=== PATIENT | female | born 2000 | race Caucasian/White ===

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

== ENCOUNTER 2018-11-08 10:16 | Emergency (ER) | payer BC ==
[2018-11-08 10:26] VITALS: TEMP 98.5
[2018-11-08] MEDS ORDERED: PANTOPRAZOLE 40 MG/10 ML VIAL IVP STA (10:38)
[2018-11-08] MEDS ORDERED: SODIUM CHLORIDE 0.9% 1,000 ML IV STA (10:38)
[2018-11-08] MEDS ORDERED: MAG HYDROX/AL HYDROX/SIMETH 30 ML, HYOSCYAMINE ELIXIR 10 ML, CIMETIDINE HCL 300 MG, LID... PO STA ×4 (10:39)
--- NOTE | 2018-11-08 10:52 | ED ---
General Adult HPI - General Chief complaint: Abdominal Pain Stated complaint: Abd pain Time Seen by Provider: 11/08/18 10:32 Source: patient, RN notes reviewed Mode of arrival: ambulatory Limitations: no limitations - History of Present Illness Initial comments: 18-year-old female presents to the emergency department for a chief complaint of left upper quadrant pain 12 hours. Patient states pain is a sharp stabbing pain. Patient states deep breathing makes the pain worse but denies any chest pain or shortness of breath. Patient admits to mild nausea as well, denies vomiting. Patient denies concern for . Patient describes the pain as a sharp stabbing pain. She denies any alleviating factors. She denies having this pain before. Patient denies any excessive NSAID or steroid use. Patient denies any history of ulcers. She denies any abdominal surgeries. No medical history besides asthma. Patient has no other complaints at this time including shortness of breath, chest pain, vomiting, headache, or visual changes. - Related Data Home Medications Medication Instructions Recorded Confirmed Albuterol Inhaler [Ventolin 2 puff INHALATION RT-Q4H PRN 07/27/14 11/08/18 Inhaler] Medroxyprogesterone Acetate 150 mg IM Q90D 03/21/17 11/08/18 [Depo-Provera] Ibuprofen [Motrin] 600 mg PO Q8HR PRN 11/08/18 11/08/18 Loratadine [Claritin] 10 mg PO DAILY 11/08/18 11/08/18 Montelukast Sodium [Singulair] 10 mg PO HS 11/08/18 11/08/18 Allergies Allergy/AdvReac Type Severity Reaction Status Date / Time No Known Allergies Allergy Verified 11/08/18 10:42 Review of Systems ROS Statement: Those systems with pertinent positive or pertinent negative responses have been documented in the HPI. ROS Other: All systems not noted in ROS Statement are negative. Past Medical History Past Medical History: Asthma Additional Past Medical History / Comment(s): CYST LEFT OVARY History of Any Multi-Drug Resistant Organisms: None Reported Past Surgical History: Adenoidectomy, Tonsillectomy Past Anesthesia/Blood Transfusion Reactions: No Reported Reaction Past Psychological History: No Psychological Hx Reported Smoking Status: Never smoker Past Alcohol Use History: None Reported Past Drug Use History: None Reported - Past Family History Mother Family Medical History: No Reported History General Exam Limitations: no limitations General appearance: alert, in no apparent distress Head exam: Present: atraumatic, normocephalic, normal inspection Eye exam: Present: normal appearance, PERRL, EOMI. Absent: scleral icterus, conjunctival injection, periorbital swelling ENT exam: Present: normal exam, mucous membranes moist Neck exam: Present: normal inspection, full ROM. Absent: tenderness, meningismus, lymphadenopathy Respiratory exam: Present: normal lung sounds bilaterally. Absent: respiratory distress, wheezes, rales, rhonchi, stridor Cardiovascular Exam: Present: regular rate, normal rhythm, normal heart sounds. Absent: systolic murmur, diastolic murmur, rubs, gallop, clicks GI/Abdominal exam: Present: soft, tenderness (minimal tenderness to palpation in LUQ and epigastric area. No guarding or rebound present. No tenderness in the right upper quadrant or lower abdomen. Exam generally unremarkable), normal bowel sounds. Absent: distended, guarding, rebound, rigid (no evidence of rigid abdomen, abdomen is soft when being palpated) Neurological exam: Present: alert, oriented X3, CN II-XII intact Psychiatric exam: Present: normal affect, normal mood Course Vital Signs 11/08/18 11/08/18 10:23 12:00 Temperature 98.5 F Pulse Rate 97 73 Respiratory 16 20 Rate Blood Pressure 116/77 115/68 O2 Sat by Pulse 99 99 Oximetry Medical Decision Making - Medical Decision Making 18-year-old otherwise healthy female presents for chief complaint of left upper quadrant pain x 12 hours. CBC CMP unremarkable. Urine negative for infection. X-ray does show air noted throughout the night and dilated small and large bowel with some air-fluid levels in the left upper quadrant. This is likely the cause of patient's pain. Patient last had a bowel movement yesterday and is passing gas normally, no concern for obstruction at this time. No vomiting. Discussed trying MiraLAX today for symptom relief. Discussed returning if she has any worsening symptoms. Patient will follow up with primary care in 1- 2 days. - Lab Data Result diagrams: 11/08/18 10:55 11/08/18 10:55 Lab Results 11/08/18 11/08/18 11/08/18 Range/Units 10:55 10:55 10:55 WBC 7.0 (4.0-11.0) k/uL RBC 4.95 (3.80-5.40) m/uL Hgb 14.5 (11.4-16.0) gm/dL Hct 44.0 (34.0-46.0) % MCV 89.0 (80.0-100.0) fL MCH 29.3 (25.0-35.0) pg MCHC 33.0 (31.0-37.0) g/dL RDW 12.2 (11.5-15.5) % Plt Count 224 (150-450) k/uL Neutrophils % 45 % Lymphocytes % 42 % Monocytes % 5 % Eosinophils % 4 % Basophils % 1 % Neutrophils # 3.2 (1.3-7.7) k/uL Lymphocytes # 3.0 (1.0-4.8) k/uL Monocytes # 0.4 (0-1.0) k/uL Eosinophils # 0.3 (0-0.7) k/uL Basophils # 0.1 (0-0.2) k/uL Sodium 140 (137-145) mmol/L Potassium 4.3 (3.5-5.1) mmol/L Chloride 110 H (98-107) mmol/L Carbon Dioxide 22 (22-30) mmol/L Anion Gap 8 mmol/L BUN 12 (7-17) mg/dL Creatinine 0.68 (0.52-1.04) mg/dL Est GFR (CKD-EPI)AfAm >90 (>60 ml/min/1.73 sqM) Est GFR (CKD-EPI)NonAf >90 (>60 ml/min/1.73 sqM) Glucose 77 (74-99) mg/dL Calcium 9.9 (8.4-10.2) mg/dL Total Bilirubin 0.7 (0.2-1.3) mg/dL AST 23 (14-36) U/L ALT 20 (9-52) U/L Alkaline Phosphatase 48 (38-126) U/L Total Protein 7.5 (6.3-8.2) g/dL Albumin 4.5 (3.5-5.0) g/dL Amylase 70 (30-110) U/L Lipase 104 (23-300) U/L Urine Color Urine Appearance (Clear) Urine pH (5.0-8.0) Ur Specific Yolyn (1.001-1.035) Urine Protein (Negative) Urine Glucose (UA) (Negative) Urine Ketones (Negative) Urine Blood (Negative) Urine Nitrite (Negative) Urine Bilirubin (Negative) Urine Urobilinogen (<2.0) mg/dL Ur Leukocyte Esterase (Negative) Urine HCG, Qual Not Detected (Not Detectd) 11/08/18 Range/Units 10:55 WBC (4.0-11.0) k/uL RBC (3.80-5.40) m/uL Hgb (11.4-16.0) gm/dL Hct (34.0-46.0) % MCV (80.0-100.0) fL MCH (25.0-35.0) pg MCHC (31.0-37.0) g/dL RDW (11.5-15.5) % Plt Count (150-450) k/uL Neutrophils % % Lymphocytes % % Monocytes % % Eosinophils % % Basophils % % Neutrophils # (1.3-7.7) k/uL Lymphocytes # (1.0-4.8) k/uL Monocytes # (0-1.0) k/uL Eosinophils # (0-0.7) k/uL Basophils # (0-0.2) k/uL Sodium (137-145) mmol/L Potassium (3.5-5.1) mmol/L Chloride (98-107) mmol/L Carbon Dioxide (22-30) mmol/L Anion Gap mmol/L BUN (7-17) mg/dL Creatinine (0.52-1.04) mg/dL Est GFR (CKD-EPI)AfAm (>60 ml/min/1.73 sqM) Est GFR (CKD-EPI)NonAf (>60 ml/min/1.73 sqM) Glucose (74-99) mg/dL Calcium (8.4-10.2) mg/dL Total Bilirubin (0.2-1.3) mg/dL AST (14-36) U/L ALT (9-52) U/L Alkaline Phosphatase (38-126) U/L Total Protein (6.3-8.2) g/dL Albumin (3.5-5.0) g/dL Amylase (30-110) U/L Lipase (23-300) U/L Urine Color Yellow Urine Appearance Clear (Clear) Urine pH 5.0 (5.0-8.0) Ur Specific Yolyn 1.013 (1.001-1.035) Urine Protein Negative (Negative) Urine Glucose (UA) Negative (Negative) Urine Ketones Negative (Negative) Urine Blood Negative (Negative) Urine Nitrite Negative (Negative) Urine Bilirubin Negative (Negative) Urine Urobilinogen <2.0 (<2.0) mg/dL Ur Leukocyte Esterase Negative (Negative) Urine HCG, Qual (Not Detectd) Disposition Clinical Impression: Abdominal pain Disposition: HOME SELF-CARE Condition: Good Instructions (If sedation given, give patient instructions): Abdominal Pain (ED ) Additional Instructions: Please follow up with primary care in 1-2 days. Please take MiraLAX as well as Motrin and Tylenol for pain. Return to the emergency department if you have any worsening symptoms. Is patient prescribed a controlled substance at d/c from ED?: No Referrals: Addy Oneill DO [Primary Care Provider] - 1-2 days Time of Disposition: 12:29
[2018-11-08 11:19] LABS: Appearance,Urine Clear (Clear); Bilirubin,Urine Negative (Negative); Blood,Urine Negative (Negative); Color,Urine Yellow; Glucose,Urine (UA) Negative (Negative); Ketones,Urine Negative (Negative); Leukocyte Esterase,Urine Negative (Negative); Nitrite,Urine Negative (Negative); Protein,Urine Negative (Negative); Specific Gravity,Urine 1.013 (1.001-1.035); Urobilinogen,Urine <2.0 mg/dL (<2.0)
[2018-11-08 11:20] LABS: Basophils # (A) 0.1 k/uL (0-0.2); Basophils % (A) 1 %; Eosinophils # (A) 0.3 k/uL (0-0.7); Eosinophils % (A) 4 %; HGB 14.5 gm/dL (11.4-16.0); Lymphocytes % (A) 42 %; MCH 29.3 pg (25.0-35.0); Mean Platelet Volume 6.7; Monocytes # (A) 0.4 k/uL (0-1.0); Monocytes % (A) 5 %; Neutrophils # (A) 3.2 k/uL (1.3-7.7); Neutrophils % (A) 45 %; Platelet Count 224 k/uL (150-450); RBC 4.95 m/uL (3.80-5.40); RDW 12.2 % (11.5-15.5)
[2018-11-08 11:32] LABS: ALT 20 U/L (9-52); AST 23 U/L (14-36); Albumin 4.5 g/dL (3.5-5.0); Alkaline Phosphatase 48 U/L (38-126); Amylase 70 U/L (30-110); Anion Gap 8 mmol/L; Blood Urea Nitrogen 12 mg/dL (7-17); Calcium 9.9 mg/dL (8.4-10.2); Carbon Dioxide 22 mmol/L (22-30); Chloride 110 mmol/L (98-107); Glucose 77 mg/dL (74-99); Lipase 104 U/L (23-300); Potassium 4.3 mmol/L (3.5-5.1); Sodium 140 mmol/L (137-145); Total Bilirubin 0.7 mg/dL (0.2-1.3); Total Protein 7.5 g/dL (6.3-8.2)
[2018-11-08] MEDS ORDERED: KETOROLAC 30 MG/ML 1 ML VIAL IVP STA (11:59)
--- NOTE | 2018-11-08 12:02 | XR ---
EXAMINATION TYPE: XR abdomen acute w cxr DATE OF EXAM: 11/08/2018 COMPARISON: Chest x-ray 06/22/2000 and HISTORY: Left upper quadrant pain TECHNIQUE: Supine, upright, and frontal chest views of the chest and abdomen are obtained. FINDINGS: There is no evidence for pneumoperitoneum. The bowel gas pattern is unremarkable as there is air throughout nondilated small and large bowel. There are some air-fluid levels in the left upper quadrant. No mass effects are seen. No unusual calcifications. There is a mild spinal curvature. IMPRESSION: The could be underlying ileus or enteritis.
[2018-11-08 12:12] VITALS: BP 115/68; PULSE 73; RESP 20
== END 2018-11-08 12:35 | disposition home or self-care (01) ==
LOC: EC 10:16
DX: R10.12 Left upper quadrant pain (principal); K59.8 Other specified functional intestinal disorders; R11.0 Nausea; J45.909 Unspecified asthma, uncomplicated; Z79.3 Long term (current) use of hormonal contraceptives; Z79.899 Other long term (current) drug therapy
CPT/HCPCS: 36415; 80053; 82150; 83690; 85025; 81003; 81025; 74022; 99284; 96374; 96375; 96361; J1885; C9113

== ENCOUNTER 2019-04-29 14:43 | Emergency (ER) | payer BC ==
[2019-04-29 14:52] VITALS: RESP 18
[2019-04-29] MEDS ORDERED: KETOROLAC 30 MG/ML 1 ML VIAL IVP STA (15:45)
[2019-04-29] MEDS ORDERED: SODIUM CHLORIDE 0.9% 1,000 ML IV STA (15:45)
--- NOTE | 2019-04-29 15:49 | ED ---
General Adult HPI - General Chief complaint: Headache Stated complaint: Neck/back/headache/nausea Time Seen by Provider: 04/29/19 15:34 Source: patient Mode of arrival: ambulatory Limitations: no limitations - History of Present Illness Initial comments: Dictation was produced using [employer] dictation software. please excuse any grammatical, word or spelling errors. Chief Complaint: 18-year-old female with history of headaches presents with constitutional symptoms and headache. History of Present Illness: Patient is a 18-year-old female she has a past medical history of migraines. States her migraine typically in the right frontal area. She states that over the last 12-18 hours she's been having mild headache. She also complains of diffuse muscular pain and joint pain. She went to the urgent care physician events administrative assistant. Physician nursing home assistant administrator her straight to the emergency department. She was told that there was concern of meningitis. Patient denies any neck stiffness. No neurologic deficit. Patient is not confused or aphasic. Patient was a mild sore throat. No cough. No dysuria no abdominal symptoms, nausea or vomiting. Denies any rash. Patient has no medical problems. She works as a [email or web address]. The ROS documented in this emergency department record has been reviewed and confirmed by me. Those systems with pertinent positive or negative responses have been documented in the HPI. All other systems are other negative and/or noncontributory. PHYSICAL EXAM: General Impression: Alert and oriented x3, not in acute distress HEENT: Normocephalic atraumatic, extra-ocular movements intact, pupils equal and reactive to light bilaterally, mucous membranes moist. Cardiovascular: Heart regular rate and rhythm, S1&S2 audible, no murmurs, rubs or gallops Chest: Lungs clear to auscultation bilaterally, no rhonchi, no wheeze, no rales Abdomen: Bowel sounds present, abdomen soft, non-tender, non-distended, no organomegaly Musculoskeletal: Pulses present and equal in all extremities, no peripheral edema Motor: no focal deficits noted Neurological: CN II-XII grossly intact, no focal motor or sensory deficits noted, negative Kernig's, negative Brudzinski's sign, negative jolt sign, patient moving neck freely without any symptoms. Skin: Intact with no visualized rashes, no rashes Psych: Normal affect and mood ED course: 18 old female who presents with very mild headache and constitutional symptoms last night sent in from urgent care for possible meningitis. Vital signs upon arrival shows temperature of 99, rest of vital signs within acceptable limits. Given patient's clinical presentation highly doubt meningitis at this time given that patient does not have any neck symptoms, she is well-appearing and has no neurologic findings. Furthermore, she does not have any rash or has been exposed to anyone with possible meningitis. She is afebrile on arrival with normal vital signs. Laboratory evaluation obtained. Pending CBC. Metabolic panel shows mild a cidosis. Urinalysis shows 9 white blood cells however 9 squamous cells. Group A strep is negative. Chest x-ray is unremarkable. Patient given intravenous fluids. Patient had some superpubic symptoms are short-lived yesterday. She denies any urinary symptoms currently. There is concern of possible urinary tract infection. Blood cultures and urine cultures and throat cultures were obtained. Patient is notified of these results were be completed and approximate 2 days. She is well-appearing. Repeat vital signs are unremarkable. Patient continues to be asymptomatic. She continues afebrile. Patient is cleared for discharge. Patient prescription to treat urinary tract infection. She was given prescription for Zofran. - Related Data Home Medications Medication Instructions Recorded Confirmed Albuterol Inhaler [Ventolin 2 puff INHALATION RT-Q4H PRN 07/27/14 04/29/19 Inhaler] Medroxyprogesterone Acetate 150 mg IM Q90D 03/21/17 04/29/19 [Depo-Provera] Loratadine [Claritin] 10 mg PO HS 11/08/18 04/29/19 Montelukast Sodium [Singulair] 10 mg PO HS 11/08/18 04/29/19 Previous Rx's Medication Instructions Recorded Cephalexin [Keflex] 500 mg PO Q6HR 5 Days #20 cap 04/29/19 Ondansetron Odt [Zofran Odt] 4 mg PO Q8HR PRN #20 tab 04/29/19 Allergies Allergy/AdvReac Type Severity Reaction Status Date / Time No Known Allergies Allergy Verified 04/29/19 15:49 Review of Systems ROS Statement: Those systems with pertinent positive or pertinent negative responses have been documented in the HPI. ROS Other: All systems not noted in ROS Statement are negative. Past Medical History Past Medical History: Asthma Additional Past Medical History / Comment(s): CYST LEFT OVARY History of Any Multi-Drug Resistant Organisms: None Reported Past Surgical History: Adenoidectomy, Tonsillectomy Past Anesthesia/Blood Transfusion Reactions: No Reported Reaction Past Psychological History: No Psychological Hx Reported Smoking Status: Never smoker Past Alcohol Use History: None Reported Past Drug Use History: None Reported - Past Family History Mother Family Medical History: No Reported History General Exam Limitations: no limitations Course Vital Signs 04/29/19 14:48 Temperature 99 F Pulse Rate 101 H Respiratory 18 Rate Blood Pressure 112/69 O2 Sat by Pulse 96 Oximetry Medical Decision Making - Lab Data Result diagrams: 04/29/19 16:05 Lab Results 04/29/19 04/29/19 04/29/19 Range/Units 15:50 16:05 16:05 Sodium 138 (137-145) mmol/L Potassium 3.8 (3.5-5.1) mmol/L Chloride 106 (98-107) mmol/L Carbon Dioxide 20 L (22-30) mmol/L Anion Gap 12 mmol/L BUN 9 (7-17) mg/dL Creatinine 0.62 (0.52-1.04) mg/dL Est GFR (CKD-EPI)AfAm >90 (>60 ml/min/1.73 sqM) Est GFR (CKD-EPI)NonAf >90 (>60 ml/min/1.73 sqM) Glucose 87 (74-99) mg/dL Calcium 9.9 (8.4-10.2) mg/dL Urine Color Yellow Urine Appearance Cloudy H (Clear) Urine pH 5.5 (5.0-8.0) Ur Specific [place] 1.026 (1.001-1.035) Urine Protein Trace H (Negative) Urine Glucose (UA) Negative (Negative) Urine Ketones 1+ H (Negative) Urine Blood Negative (Negative) Urine Nitrite Negative (Negative) Urine Bilirubin Negative (Negative) Urine Urobilinogen <2.0 (<2.0) mg/dL Ur Leukocyte Esterase Moderate H (Negative) Urine RBC 1 (0-5) /hpf Urine WBC 9 H (0-5) /hpf Ur Squamous Epith Cells 9 H (0-4) /hpf Urine Mucus Many H (None) /hpf Group A Strep Rapid Negative (Negative) Disposition Clinical Impression: Headache Disposition: HOME SELF-CARE Condition: Good Instructions (If sedation given, give patient instructions): Acute Headache (ED) Prescriptions: Cephalexin [Keflex] 500 mg PO Q6HR 5 Days #20 cap Ondansetron Odt [Zofran Odt] 4 mg PO Q8HR PRN #20 tab PRN Reason: Nausea Is patient prescribed a controlled substance at d/c from ED?: No Referrals: Addy Oneill DO [Primary Care Provider] - 1-2 days Time of Disposition: 16:55
[2019-04-29 16:08] LABS: Appearance,Urine Cloudy (Clear); Bilirubin,Urine Negative (Negative); Blood,Urine Negative (Negative); Color,Urine Yellow; Glucose,Urine (UA) Negative (Negative); Ketones,Urine 1+ (Negative); Leukocyte Esterase,Urine Moderate (Negative); Mucus,Urine Many /hpf; Nitrite,Urine Negative (Negative); PH, Urine 5.5 (5.0-8.0); Protein,Urine Trace (Negative); RBC,Urine 1 /hpf (0-5); Specific Gravity,Urine 1.026 (1.001-1.035); Squamous Epithelial Cell,Urine 9 /hpf (0-4); Urobilinogen,Urine <2.0 mg/dL (<2.0); WBC,Urine 9 /hpf (0-5)
[2019-04-29 16:20] LABS: Basophils % (A) 0 %; Eosinophils # (A) 0.1 k/uL (0-0.7); Eosinophils % (A) 1 %; HCT 43.4 % (34.0-46.0); HGB 14.4 gm/dL (11.4-16.0); Lymphocytes # (A) 1.5 k/uL (1.0-4.8); Lymphocytes % (A) 23 %; MCH 29.7 pg (25.0-35.0); MCHC 33.1 g/dL (31.0-37.0); MCV 89.8 fL (80.0-100.0); Mean Platelet Volume 6.4; Monocytes # (A) 0.4 k/uL (0-1.0); Monocytes % (A) 6 %; Neutrophils # (A) 4.6 k/uL (1.3-7.7); Neutrophils % (A) 68 %; Platelet Count 266 k/uL (150-450); RBC 4.83 m/uL (3.80-5.40); RDW 11.9 % (11.5-15.5); WBC 6.7 k/uL (4.0-11.0)
[2019-04-29 16:27] LABS: African American GFR (CKD) >90 (>60 ml/min/1.73 sqM); Anion Gap 12 mmol/L; Blood Urea Nitrogen 9 mg/dL (7-17); Calcium 9.9 mg/dL (8.4-10.2); Carbon Dioxide 20 mmol/L (22-30); Chloride 106 mmol/L (98-107); Glucose 87 mg/dL (74-99); Potassium 3.8 mmol/L (3.5-5.1); Sodium 138 mmol/L (137-145)
--- NOTE | 2019-04-29 16:43 | XR ---
EXAMINATION TYPE: XR chest 2V DATE OF EXAM: 04/29/2019 COMPARISON: 11/08/2018 HISTORY: Back pain TECHNIQUE: Frontal and lateral views of the chest are obtained. FINDINGS: Heart and mediastinum are normal. Lungs are clear. Diaphragm is normal. Bony thorax appear s normal. IMPRESSION: Normal chest. No change.
[2019-04-29 16:52] VITALS: BP 109/65; PULSE 76; TEMP 97.7
[2019-04-29] MEDS ORDERED: ONDANSETRON 4 MG/2 ML VIAL IVP STA (16:52)
== END 2019-04-29 17:17 | disposition home or self-care (01) ==
LOC: EC 14:43
DX: R51 Headache (principal); E87.2 Acidosis; J45.909 Unspecified asthma, uncomplicated; Z79.899 Other long term (current) drug therapy
CPT/HCPCS: 36415; 80048; 85025; 81001; 87040; 87086; 87081; 87430; 71046; 99283; 96374; 96375; J2405; J1885

== ENCOUNTER 2022-12-24 04:27 | Emergency (ER) | payer BC ==
[2022-12-24 04:42] VITALS: RESP 18; TEMP 98.1
[2022-12-24] MEDS ORDERED: KETOROLAC 15 MG/ML 1 ML VIAL IVP STA (05:16)
[2022-12-24] MEDS ORDERED: SODIUM CHLORIDE 0.9% 1,000 ML IV STA (05:16)
[2022-12-24] MEDS ORDERED: ONDANSETRON 4 MG/2 ML VIAL IVP STA (05:16)
[2022-12-24 05:56] LABS: Basophils % (A) 0 %; Eosinophils # (A) 0.3 k/uL (0-0.7); Eosinophils % (A) 4 %; HCT 43.3 % (34.0-46.0); HGB 14.8 gm/dL (11.4-16.0); Lymphocytes # (A) 2.7 k/uL (1.0-4.8); Lymphocytes % (A) 33 %; MCH 31.4 pg (25.0-35.0); MCHC 34.3 g/dL (31.0-37.0); MCV 91.6 fL (80.0-100.0); Mean Platelet Volume 7.4; Monocytes # (A) 0.4 k/uL (0-1.0); Monocytes % (A) 5 %; Neutrophils # (A) 4.6 k/uL (1.3-7.7); Neutrophils % (A) 56 %; Platelet Count 267 k/uL (150-450); RBC 4.73 m/uL (3.80-5.40); RDW 11.7 % (11.5-15.5); WBC 8.3 k/uL (3.8-10.6)
[2022-12-24 06:02] LABS: HCG,Qualitative Serum Not Detected
[2022-12-24 06:09] LABS: ALT 50 U/L (4-34); AST 36 U/L (14-36); African American GFR (CKD) >90 (>60 ml/min/1.73 sqM); Albumin 4.2 g/dL (3.5-5.0); Alkaline Phosphatase 48 U/L (38-126); Amylase 68 U/L (30-110); Anion Gap 7 mmol/L; Blood Urea Nitrogen 13 mg/dL (7-17); Carbon Dioxide 20 mmol/L (22-30); Chloride 109 mmol/L (98-107); Glucose 94 mg/dL (74-99); Lipase 93 U/L (23-300); Non-African American GFR(CKD) >90 (>60 ml/min/1.73 sqM); Sodium 136 mmol/L (137-145); Total Bilirubin 0.7 mg/dL (0.2-1.3); Total Protein 7.1 g/dL (6.3-8.2)
[2022-12-24 06:11] LABS: Partial Thromboplastin Time 24.9 sec (22.0-30.0); Potassium 4.2 mmol/L (3.5-5.1); Prothrombin Time 10.3 sec (9.0-12.0)
[2022-12-24 06:38] LABS: Appearance,Urine Clear (Clear); Bilirubin,Urine Negative (Negative); Blood,Urine Negative (Negative); Color,Urine Light Yellow; Glucose,Urine (UA) Negative (Negative); Ketones,Urine Negative (Negative); Leukocyte Esterase,Urine Negative (Negative); Nitrite,Urine Negative (Negative); PH, Urine 5.5 (5.0-8.0); Protein,Urine Negative (Negative); Specific Gravity,Urine 1.011 (1.001-1.035); Urobilinogen,Urine <2.0 mg/dL (<2.0)
--- NOTE | 2022-12-24 07:01 | XR ---
EXAMINATION TYPE: XR KUB DATE OF EXAM: 12/24/2022 COMPARISON: 11/08/2018 HISTORY: Abdominal pain TECHNIQUE: FINDINGS: There is no sign of intestinal obstruction or pneumoperitoneum. Fecal pattern is normal. No evidence of a mass. No pathologic calcification over the kidneys. Lung bases are clear. IMPRESSION: Nonacute abdomen.
[2022-12-24] MEDS ORDERED: MORPHINE SULFATE 2 MG/ML SYRINGE IVP STA (07:19)
[2022-12-24 07:57] VITALS: BP 99/67; PULSE 79
--- NOTE | 2022-12-24 08:06 | US ---
EXAMINATION TYPE: US transvaginal DATE OF EXAM: 12/24/2022 COMPARISON: US 2013 CLINICAL HISTORY: eval for torsion, history of cysts. Hx of cysts, pt states she had a mass removed f rom her left ovary in 2017. Hx endometriosis. Pt on depo shot. G0. TECHNIQUE: Transvaginal (TV). Date of LMP: Unknown. Pt is on depo shot. EXAM MEASUREMENTS: Uterus: 6.4 x 4.1 x 2.6 cm Endometrial Stripe: 0.29 cm Right Ovary: 5.0 x 2.9 x 2.5 cm Left Ovary: Not seen 1. Uterus: Anteverted 2. Endometrium: 0.29 cm 3. Right Ovary: Largest anechoic area measures 1.3 x 1.4 x 1.1 cm. 4. Left Ovary: Not seen. Spectral, color and waveform doppler imaging shows arterial and venous flow within the right ovary. Left ovary was obscured. 5. Bilateral Adnexa: Appear wnl 6. Posterior cul-de-sac: Appears wnl IMPRESSION: 1. Right ovarian simple appearing cyst. 2. Normal vascular flow right ovary 3. Nonvisualization of the left ovary and vascularity on the left adnexa cannot be confirmed. Correla te with the patient's symptoms.
--- NOTE | 2022-12-24 08:15 | ED ---
General Adult HPI - General Chief complaint: Abdominal Pain Stated complaint: Menstrual Cramping Time Seen by Provider: 12/24/22 05:00 Source: patient, RN notes reviewed, old records reviewed Mode of arrival: ambulatory Limitations: no limitations - History of Present Illness Initial comments: Patient is a 22-year-old female with past medical history remarkable for prior ovarian mass and left ovary that was removed, who presents emergency Department complaining of lower abdominal cramping. Believes it is menstrual cramps that she did have some bleeding yesterday. However she states she has a regular menstrual cycles. He has not had a normal cycle in a long time. He was late on obtaining her normal control injection, and does associate her is current symptoms with that. However pain at home is not controlled with the impact, Motrin, Tylenol and she is concerned with her history of having ovarian mass. Presents for further evaluation. Does endorse nausea. No emesis. No diarrhea. No upper abdominal pain. No urinary complaints. Denies being . Denies any vaginal discharge. Does endorse onetime episode of vaginal bleeding. No other acute complaints at this time. Presents for further evaluation. States the pain is more or less constant describes a sharp sensation across the lower aspect of her abdomen. Not isolated to one side of her abdomen. - Related Data Home Medications Medication Instructions Recorded Confirmed Albuterol Inhaler [Ventolin 2 puff INHALATION RT-Q4H PRN 07/27/14 04/29/19 Inhaler] Medroxyprogesterone Acetate 150 mg IM Q90D 03/21/17 04/29/19 [Depo-Provera] Loratadine [Claritin] 10 mg PO HS 11/08/18 04/29/19 Montelukast Sodium [Singulair] 10 mg PO HS 11/08/18 04/29/19 Previous Rx's Medication Instructions Recorded Cephalexin [Keflex] 500 mg PO Q6HR 5 Days #20 cap 04/29/19 Ondansetron Odt [Zofran Odt] 4 mg PO Q8HR PRN #20 tab 04/29/19 methocarbamoL [Robaxin] 500 mg PO BID PRN 5 Days #10 tab 12/24/22 Allergies Allergy/AdvReac Type Severity Reaction Status Date / Time No Known Allergies Allergy Verified 04/29/19 15:49 Review of Systems ROS Statement: Those systems with pertinent positive or pertinent negative responses have been documented in the HPI. Review of Systems: CONST: Denies fever EYES: Denies blurry vision ENT: Denies nasal congestion C/V: Denies Chest pain RESP: Denies shortness of breath GI: Endorses abdominal pain : Denies dysuria SKIN: Denies rash. MSK: Denies joint pain. NEURO: Denies headache ROS Other: All systems not noted in ROS Statement are negative. Past Medical History Past Medical History: Asthma Additional Past Medical History / Comment(s): CYST LEFT OVARY History of Any Multi-Drug Resistant Organisms: None Reported Past Surgical History: Adenoidectomy, Tonsillectomy Past Anesthesia/Blood Transfusion Reactions: No Reported Reaction Past Psychological History: No Psychological Hx Reported Past Alcohol Use History: None Reported Past Drug Use History: None Reported - Past Family History Mother Family Medical History: No Reported History General Exam - General Exam Comments Initial Comments: General: Appears in no acute distress. HEAD: Normal with no signs of head trauma. EYES: PERRLA, EOMI, conjunctiva normal, no discharge. ENT: Hearing grossly intact, normal oropharynx. RESPIRATORY: Clear breath sounds bilaterally. No wheezes, rales, or rhonchi. C/V: Regular rate and rhythm. S1 and S2 auscultated, no edema, peripheral pulses 2+ and intact throughout ABD: Abdomen soft, nondistended. Mild tenderness to palpation in the right lower, left lower quadrants as well as suprapubic region. Very mild tenderness on palpation. No guarding. No rebound tenderness. No peritoneal signs. EXT: Normal range of motion, no obvious deformity SKIN: No rashes or lesions observed on exposed skin. NEURO: Alert and oriented 4. Limitations: no limitations Course Vital Signs 12/24/22 12/24/22 04:29 07:57 Temperature 98.1 F 98.1 F Pulse Rate 83 79 Respiratory 18 18 Rate Blood Pressure 122/84 99/67 O2 Sat by Pulse 96 98 Oximetry Medical Decision Making - Medical Decision Making Was pt. sent in by a medical professional or institution (, PATTIE, PAINTER MIRROR, urgent care, hospital, or [facility]...) When possible be specific @ -No Did you speak to anyone other than the patient for history (EMS, parent, family, police, friend...)? What history was obtained from this source @ -No Did you review nursing and triage notes (agree or disagree)? Why? @ -I reviewed and agree with nursing and triage notes Were old charts reviewed (outside hosp., previous admission, EMS record, old EKG, old radiological studies, urgent care reports/EKG's, [facility] records)? Report findings @ -No old charts were reviewed Differential Diagnosis (chest pain, altered mental status, abdominal pain women, abdominal pain men, vaginal bleeding, weakness, fever, dyspnea, syncope, headache, dizziness, GI bleed, back pain, seizure, CVA, palpatations, mental health, musculoskeletal)? @ -Ovarian torsion, UTI, menstrual cramping, Menstrual cycle, Dehydration. This list is not all inclusive. EKG interpreted by me (3pts min.). @ -None done X-rays interpreted by me (1pt min.). @ -KUB x-ray revealed no obvious acute intra-abdominal process. CT interpreted by me (1pt min.). @ -None done U/S interpreted by me (1pt. min.). @ -Pelvic ultrasound for torsion was negative for any obvious torsion. Repeat was done by radiology. Difficult to see the patient's left ovary. What testing was considered but not performed or refused? (CT, X-rays, U/S, labs)? Why? @ -None What meds were considered but not given or refused? Why? @ -None Did you discuss the management of the patient with other professionals (prof fitzs i.e. , PA, PAINTER MIRROR, lab, RT, psych nurse, social worker aide, security engineer, teacher, disciplinary hearing officer, test case developer)? Give summary @ -No Was smoking cessation discussed for >3mins.? @ -No Was critical care preformed (if so, how long)? @ -No Were there social determinants of health that impacted care today? How? (Homelessness, low income, unemployed, alcoholism, drug addiction, transportat ion, low edu. Level, literacy, decrease access to med. care, custodial, rehab)? @ -No Was there de-escalation of care discussed even if they declined (Discuss DNR or withdrawal of care, Hospice)? DNR status @ -No What co-morbidities impacted this encounter? (DM, HTN, Smoking, COPD, CAD, Cancer, CVA, ARF, Chemo, Hep., AIDS, mental health diagnosis, sleep apnea, morbid obesity)? @ -None Was patient admitted / discharged? Hospital course, mention meds given and route, prescriptions, significant lab abnormalities, going to OR and other pertinent info. @ -Based on the patient's presentation and physical exam, I'm concerned for possible ovarian torsion for the patient as she does have a history of ovarian cyst as well as ovarian mass. It is likely she is just experiencing menstrual cramping, however we'll obtain basic abdominal laboratory studies including lactic acid. This middle of night and there is no ultrasound available at this time. My suspicion is low for torsion and therefore I do believe we can wait until labs are back. If there are any red flags like elevated lactic acid we will contact ultrasound for stat ultrasound. There were in agreement this plan. She'll be started on IV fluids, Zofran, Toradol. Patient was in agreement this plan. KUB x-ray unremarkable. Labs are within acceptable limits. Lactic acid is within normal limits. Urine is negative for any acute process. Patient is not . There was a delay as above for the ultrasound to be performed. It came back negative for any torsion of the right ovary but difficult to visualize left ovary. I did discuss this with the patient and ever since her left ovary surgery, it is never visualized on ultrasound. We discussed that she is feeling better, labs are within acceptable limits, and ultrasound is not showing any definitive evidence of torsion I did recommend that she can be discharged home. She was in agreement this plan. Strict return precautions were discussed. She'll follow-up with her MORTGAGE COORDINATOR next week. I will provide the patient with a prescription for Robaxin. I instructed the patient to follow up with their PCP in the next 1-3 days. I explained that the patient should return to the emergency department if they experience any worsening symptoms. Strict return precautions were discussed with the patient. The patient expressed understanding of these instructions. I answered all questions that the patient had. The patient was discharged home in good condition with their prescriptions and follow up information. Undiagnosed new problem with uncertain prognosis? @ -No Drug Therapy requiring intensive monitoring for toxicity (Heparin, Nitro, Insulin, Cardizem)? @ -No Were any procedures done? @ -No Diagnosis/symptom? @ -Abdominal pain of unknown etiology, likely menstrual cramps Acute, or Chronic, or Acute on Chronic? @ -Acute Uncomplicated (without systemic symptoms) or Complicated (systemic symptoms)? @ -Uncomplicated Side effects of treatment? @ -No Exacerbation, Progression, or Severe Exacerbation? @ -No Poses a threat to life or bodily function? How? (Chest pain, [place], CA, pneumonia, PE, COPD, DKA, ARF, appy, cholecystitis, CVA, Diverticulitis, Homicidal, Suicidal, threat to staff... and all critical care pts) @ -No - Lab Data Result diagrams: 12/24/22 05:31 12/24/22 05:31 Lab Results 12/24/22 12/24/22 12/24/22 Range/Units 05:20 05:31 05:31 WBC 8.3 (3.8-10.6) k/uL RBC 4.73 (3.80-5.40) m/uL Hgb 14.8 (11.4-16.0) gm/dL Hct 43.3 (34.0-46.0) % MCV 91.6 (80.0-100.0) fL MCH 31.4 (25.0-35.0) pg MCHC 34.3 (31.0-37.0) g/dL RDW 11.7 (11.5-15.5) % Plt Count 267 (150-450) k/uL MPV 7.4 Neutrophils % 56 % Lymphocytes % 33 % Monocytes % 5 % Eosinophils % 4 % Basophils % 0 % Neutrophils # 4.6 (1.3-7.7) k/uL Lymphocytes # 2.7 (1.0-4.8) k/uL Monocytes # 0.4 (0-1.0) k/uL Eosinophils # 0.3 (0-0.7) k/uL Basophils # 0.0 (0-0.2) k/uL PT 10.3 (9.0-12.0) sec INR 1.0 (<1.2) APTT 24.9 (22.0-30.0) sec Sodium (137-145) mmol/L Potassium (3.5-5.1) mmol/L Chloride (98-107) mmol/L Carbon Dioxide (22-30) mmol/L Anion Gap mmol/L BUN (7-17) mg/dL Creatinine (0.52-1.04) mg/dL Est GFR (CKD-EPI)AfAm (>60 ml/min/1.73 sqM) Est GFR (CKD-EPI)NonAf (>60 ml/min/1.73 sqM) Glucose (74-99) mg/dL Plasma Lactic Acid González (0.7-2.0) mmol/L Calcium (8.4-10.2) mg/dL Total Bilirubin (0.2-1.3) mg/dL AST (14-36) U/L ALT (4-34) U/L Alkaline Phosphatase (38-126) U/L Total Protein (6.3-8.2) g/dL Albumin (3.5-5.0) g/dL Amylase (30-110) U/L Lipase (23-300) U/L HCG, Qual Urine Color Urine Appearance (Clear) Urine pH (5.0-8.0) Ur Specific [place] (1.001-1.035) Urine Protein (Negative) Urine Glucose (UA) (Negative) Urine Ketones (Negative) Urine Blood (Negative) Urine Nitrite (Negative) Urine Bilirubin (Negative) Urine Urobilinogen (<2.0) mg/dL Ur Leukocyte Esterase (Negative) Blood Type A Positive Blood Type Recheck A Pos Bld Type Recheck Status No Antibody Screen NEGATIVE Spec Expiration Date 12/27/2022231912/24/22 12/24/22 12/24/22 Range/Units 05:31 05:31 06:17 WBC (3.8-10.6) k/uL RBC (3.80-5.40) m/uL Hgb (11.4-16.0) gm/dL Hct (34.0-46.0) % MCV (80.0-100.0) fL MCH (25.0-35.0) pg MCHC (31.0-37.0) g/dL RDW (11.5-15.5) % Plt Count (150-450) k/uL MPV Neutrophils % % Lymphocytes % % Monocytes % % Eosinophils % % Basophils % % Neutrophils # (1.3-7.7) k/uL Lymphocytes # (1.0-4.8) k/uL Monocytes # (0-1.0) k/uL Eosinophils # (0-0.7) k/uL Basophils # (0-0.2) k/uL PT (9.0-12.0) sec INR (<1.2) APTT (22.0-30.0) sec Sodium 136 L (137-145) mmol/L Potassium 4.2 (3.5-5.1) mmol/L Chloride 109 H (98-107) mmol/L Carbon Dioxide 20 L (22-30) mmol/L Anion Gap 7 mmol/L BUN 13 (7-17) mg/dL Creatinine 0.64 (0.52-1.04) mg/dL Est GFR (CKD-EPI)AfAm >90 (>60 ml/min/1.73 sqM) Est GFR (CKD-EPI)NonAf >90 (>60 ml/min/1.73 sqM) Glucose 94 (74-99) mg/dL Plasma Lactic Acid González 1.7 (0.7-2.0) mmol/L Calcium 9.0 (8.4-10.2) mg/dL Total Bilirubin 0.7 (0.2-1.3) mg/dL AST 36 (14-36) U/L ALT 50 H (4-34) U/L Alkaline Phosphatase 48 (38-126) U/L Total Protein 7.1 (6.3-8.2) g/dL Albumin 4.2 (3.5-5.0) g/dL Amylase 68 (30-110) U/L Lipase 93 (23-300) U/L HCG, Qual Not Detected Urine Color Light Yellow Urine Appearance Clear (Clear) Urine pH 5.5 (5.0-8.0) Ur Specific [place] 1.011 (1.001-1.035) Urine Protein Negative (Negative) Urine Glucose (UA) Negative (Negative) Urine Ketones Negative (Negative) Urine Blood Negative (Negative) Urine Nitrite Negative (Negative) Urine Bilirubin Negative (Negative) Urine Urobilinogen <2.0 (<2.0) mg/dL Ur Leukocyte Esterase Negative (Negative) Blood Type Blood Type Recheck Bld Type Recheck Status Antibody Screen Spec Expiration Date Disposition Clinical Impression: Abdominal pain of unknown cause, Menstrual cramps Disposition: HOME SELF-CARE Condition: Good Instructions (If sedation given, give patient instructions): Abdominal Pain (ED) Prescriptions: methocarbamoL [Robaxin] 500 mg PO BID PRN 5 Days #10 tab PRN Reason: Pain Is patient prescribed a controlled substance at d/c from ED?: No Referrals: Addy Oneill DO [Primary Care Provider] - 1-2 days Time of Disposition: 08:00
== END 2022-12-24 08:23 | disposition home or self-care (01) ==
LOC: EC 04:27
DX: N94.6 Dysmenorrhea, unspecified (principal); J45.909 Unspecified asthma, uncomplicated; Z79.899 Other long term (current) drug therapy
CPT/HCPCS: 36415; 86900; 86901; 80053; 82150; 83605; 83690; 85025; 85610; 85730; 86850; 81003; 84703; 74018; 93976; 76830; 99285; 96374; 96375 ×2; 96361; J2405; J2270; J1885